=== PATIENT | female | born 1985 | race Caucasian/White ===

== ENCOUNTER 2017-09-24 13:51 | Emergency (ER) | payer MEDICAID ==
[~2017-09-24] VITALS: Ht 167.6 cm; Wt 91.0 kg
[2017-09-24] MEDS ORDERED: IBUPROFEN 800MG TABLET PO ONE (17:00)
[2017-09-24 18:31] VITALS: BP 138/90
== END 2017-09-24 18:33 | disposition home or self-care (01) ==
LOC: ER 13:51
DX: S40.011A Contusion of right shoulder, initial encounter (principal); S10.93XA Contusion of unspecified part of neck, initial encounter; V43.52XA Car driver injured in collision with other type car in traffic accident, initial encounter; Y93.89 Activity, other specified; Y92.488 Other paved roadways as the place of occurrence of the external cause
CPT/HCPCS: 72040; 81025; 99284